=== PATIENT | female | born 1985 ===

== ENCOUNTER 2022-08-23 04:51 | Inpatient (IN) | payer SELFPAY ==
[~2022-08-23 04:51] MED LIST: Oxytocin/0.9 % Sodium Chloride 30 UNIT/500 ML BAG IV SCH
[2022-08-23] MEDS: Lactated Ringers 1,000 ML IV SCH ×3 (04:55→07:51)
[2022-08-23] MEDS ORDERED: Lidocaine 1% 50 ML MDV INJECT PRN (05:59)
[2022-08-23] MEDS ORDERED: Butorphanol 1 MG/ML SDV IVPUSH PRN (05:59)
[2022-08-23] MEDS ORDERED: Misoprostol 200 MCG Tab PO PRN (05:59)
[2022-08-23] MEDS ORDERED: Water For Irrigation,Sterile 1,000 ML Container IRR PRN (05:59)
[2022-08-23] MEDS ORDERED: Sodium Chloride 0.9% 20 ML SDV IV PRN ×2 (05:59→09:01)
[2022-08-23] MEDS ORDERED: Carboprost Tromethamine 250 MCG/1 ML Amp IM PRN (05:59)
[2022-08-23] MEDS ORDERED: Sodium Chloride 0.9% 2.5 ML Syringe FLUSH PRN (05:59)
[2022-08-23] MEDS ORDERED: Sodium Chloride 0.9% 10 ML Syringe FLUSH PRN (05:59)
[2022-08-23] MEDS ORDERED: Tranexamic Acid 1,000 MG in Sodium Chloride 0.9% 100 ML IV PRN ×2 (05:59→09:09)
[2022-08-23] MEDS ORDERED: Methylergonovine 0.2 MG/1 ML Amp IM PRN ×2 (05:59→09:09)
[2022-08-23] MEDS ORDERED: Ropivacaine/PF 400 MG/200 ML PCA ONE (06:11)
[2022-08-23] MEDS ORDERED: ePHEDrine 50 MG/ML SDV IVPUSH PRN (06:31)
[2022-08-23] MEDS ORDERED: Oxytocin 10 Units/1 ML SDV ONE (06:39)
[2022-08-23] MEDS ORDERED: Phenylephrine HCl In 0.9% NaCl 1 MG/10 ML Vial ONE (06:39)
[2022-08-23] MEDS ORDERED: Dexmedetomidine 200 MCG/2 ML SDV ONE (06:39)
[2022-08-23] MEDS ORDERED: Water For Injection, Sterile 20 ML ONE (06:40)
[2022-08-23] MEDS ORDERED: ceFAZolin 1 GM Vial ONE (06:40)
[2022-08-23] MEDS ORDERED: Lidocaine 2% with EPINEPHrine 1:200,000 20 ML SDV ONE (06:40)
[2022-08-23] MEDS ORDERED: Ondansetron 4 MG/2 ML SDV ONE (06:44)
[2022-08-23] MEDS ORDERED: Ropivacaine HCl/PF 400 MG in Premix Bag 1 BAG EPIDUR SCH (06:45)
[2022-08-23] MEDS ORDERED: Phenylephrine HCl In 0.9% NaCl 1 MG/10 ML Vial IVPUSH SCH (06:45)
[2022-08-23] MEDS ORDERED: Citric Acid/Sodium Citrate Solution 30 ML Cup ONE (08:57)
[2022-08-23] MEDS ORDERED: Famotidine 20 MG/2 ML SDV ONE (08:57)
[2022-08-23] MEDS ORDERED: Citric Acid/Sodium Citrate Solution 30 ML Cup PO ONE (09:01)
[2022-08-23] MEDS ORDERED: Ondansetron 4 MG/2 ML SDV IVPUSH PRN ×2 (09:09→11:07)
[2022-08-23] MEDS ORDERED: diphenhydrAMINE 50 MG/ML SDV IVPUSH PRN ×2 (09:09→11:07)
[2022-08-23] MEDS ORDERED: Acetaminophen/oxyCODONE 325-5 MG Tab PO PRN ×2 (09:09)
[2022-08-23] MEDS ORDERED: Bisacodyl 10 MG Supp RECTAL PRN (09:09)
[2022-08-23] MEDS ORDERED: Oxytocin 10 Units/1 ML SDV IM PRN (09:09)
[2022-08-23] MEDS ORDERED: Lanolin 100% Cream 7 GM Tube TOP PRN (09:09)
[2022-08-23] MEDS ORDERED: Misoprostol 200 MCG Tab RECTAL PRN (09:09)
[2022-08-23] MEDS ORDERED: Lactated Ringers 1,000 ML IV SCH ×2 (09:15)
[2022-08-23] MEDS ORDERED: Oxytocin/0.9 % Sodium Chloride 30 UNIT/500 ML BAG IV SCH (09:15)
[2022-08-23] MEDS ORDERED: Oxytocin/0.9 % Sodium Chloride 30 UNIT/500 ML BAG ONE (09:39)
[2022-08-23] MEDS ORDERED: Dexamethasone 4 MG/ML 5 ML MDV ONE (09:39)
[2022-08-23] MEDS ORDERED: Morphine PF 10 MG/10 ML SDV ONE (09:39)
[2022-08-23] MEDS ORDERED: Ropivacaine 0.5% 5 MG/ML 30 ML SDV ONE (09:39)
[2022-08-23] MEDS ORDERED: Water For Injection, Sterile 40 ML ONE (09:40)
[2022-08-23] MEDS ORDERED: Ropivacaine 0.2% PF 2 MG/ML 20 ML SDV ONE (10:50)
[2022-08-23] MEDS ORDERED: Naloxone 0.4 MG/ML SDV IVPUSH PRN (11:07)
[2022-08-23] MEDS: Ketorolac 30 MG/ML SDV IVPUSH SCH (12:08)
[2022-08-23 20:41] LABS: C. TRACHOMATIS BY PCR NOT DETECTED; N. GONORRHOEAE BY PCR NOT DETECTED
[2022-08-23] MEDS: Docusate Sodium 100 MG Cap PO SCH (21:17)
[2022-08-24] MEDS: Ketorolac 30 MG/ML SDV IVPUSH SCH (07:40)
[2022-08-24] MEDS ORDERED: Ibuprofen 800 MG Tab PO PRN (09:09)
[2022-08-24] MEDS: Docusate Sodium 100 MG Cap PO SCH ×2 (09:18→22:12)
[2022-08-24] MEDS: Ketorolac 30 MG/ML SDV IVPUSH PRN (14:36)
[2022-08-25] MEDS: Ketorolac 30 MG/ML SDV IVPUSH PRN (02:44)
[2022-08-25] MEDS: Docusate Sodium 100 MG Cap PO SCH (11:35)
== END 2022-08-25 10:52 | disposition home or self-care (01) | DRG 788 ==
LOC: MW.OBCHECK 04:51 → MW.OB 04:53 → MW.OBCHECK 04:54 → MW.OB 04:55 → OBSVTOIN 09:45 → MW.OB 15:03
PROVIDERS: ADMIT Obstetrics & Gynecology Obstetrics; ATTEND Obstetrics & Gynecology Obstetrics
PROC: 10D00Z1 Extraction of Products of Conception, Low, Open Approach (ICD-10-PCS; principal; 2022-08-23)
DX: O48.0 Post-term pregnancy (principal); Z3A.41 41 weeks gestation of pregnancy; Z37.0 Single live birth; O77.0 Labor and delivery complicated by meconium in amniotic fluid; O76 Abnormality in fetal heart rate and rhythm complicating labor and delivery; O66.9 Obstructed labor, unspecified; O62.2 Other uterine inertia
CPT/HCPCS: 01967; 01968; 36415; 51702; 64450; 80305-QW; 85014; 85018; 85025; 86592; 86762; 86803; 86850; 86900; 86901; 87340; 87389; 87491; 87591; A9270-GY; J0690; J1100; J1885; J2274; J2405; J2590; J2795; J3490; J7120

== ENCOUNTER 2022-09-07 17:54 | Emergency (ER) | payer SELFPAY ==
[2022-09-07 19:21] LABS: CARBON DIOXIDE,CO2 27.4 mmol/L (21.0-32.0); POTASSIUM,K 3.7 mmol/L (3.5-5.1)
== END 2022-09-07 19:43 | disposition home or self-care (01) ==
LOC: MW.ED 17:54
DX: N39.0 Urinary tract infection, site not specified (principal); Z98.890 Other specified postprocedural states
CPT/HCPCS: 36415; 80053; 81001; 81025; 85025; 87086; 99283